=== PATIENT | male | born 1995 | race Caucasian/White ===

== ENCOUNTER 2020-01-23 22:15 | Emergency (ER) | payer SELFPAY ==
[2020-01-23] MEDS ORDERED: DEXAMETHASONE SOD PHOS INJ 10 MG/1 ML VIAL IM ONE (22:53)
--- NOTE | 2020-01-23 22:59 | ER Document Report ---
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 Patient states that he has been out of his mupirocin cream a nd recently started using it. Patient states that he is also had a cough and nasal congestion for 2 weeks and started developing a sore throat 2 days ago. Patient states that eating and drinking does make the pain worse in his throat. He is urinating normally and having normal bowel movements. Denies any headache, fever, neck pain, chest pain, palpitations, syncope, shortness of breath, wheeze, dyspnea, abdominal pain, nausea/vomiting/diarrhea, urinary retention, dysuria, hematuria, or rash. - ROS Systems Reviewed and Negative: Yes All other systems reviewed and negative Past Medical History - Social History Smoking Status: Unknown if Ever Smoked Family History: Reviewed & Not Pertinent Vertical Provider Document - CONSTITUTIONAL Agree With Documented VS: Yes Notes: PHYSICAL EXAMINATION: GENERAL: Well-appearing, well-nourished and in no acute distress. A&Ox4. Answers questions appropriately. Moves comfortably w/o notable distress HEAD: Atraumatic, normocephalic. EYES: Pupils equal round and reactive to light, extraocular movements intact, sclera anicteric, conjunctiva are normal. ENT: Nares patent and with clear discharge. oropharynx mild erythema without exudates. 2+ tonsilar hypertrophy with mild erythema no exudate. There are ulcerations noted to the soft palate. No palatine shift. Uvula midline. No tongue protrusion. No drooling, hoarseness, or airway compromise. Moist mucous membranes. No sinus tenderness. NECK: Normal range of motion, supple without lymphadenopathy. No rigidity/meningismus. LUNGS: Breath sounds clear to auscultation bilaterally and equal. No wheezes rales or rhonchi. No retractions HEART: Regular rate and rhythm without murmurs, rubs, gallops. ABDOMEN: Soft, nontender, nondistended abdomen. No guarding, no rebound. Normal bowel sounds present. No CVA tenderness bilaterally. NEUROLOGICAL: Normal speech, normal gait. PSYCH: Normal mood, normal affect. SKIN: Patient does have some scabbed mildly erythemic lesions around his nose that does appear to be a staph infection. No rash to the palms/soles. Course - Re-evaluation Re-evalutation: 01/23/20 23:41 Patient is an afebrile, well-hydrated, 24-year-old male who presents to the emergency department with an acute URI, suspect viral. I do suspect that he has herpangina of his oropharynx. He also has some mild appearing staph infection around his nose. Vitals are acceptable without significant tachycardia, tachypnea, or hypoxia. PE is otherwise unremarkable. He is nontoxic-appearing and is tolerating p.o. without difficulty. Lungs are clear to auscultation bilaterally. Rapid strep was negative with a throat culture pending. Chest x- ray unremarkable. No further labs or imaging warranted at this time. Patient was given Decadron IM. Low suspicion for any meningitis, sepsis, peritonsillar/pharyngeal abscess, respiratory compromise, Hayden's, or other emergent systemic condition at this time. Patient is aware this condition can change from initial presentation and he needs to monitor symptoms closely. At a precaution with the mild skin infection, I will send him home with a prescription for clindamycin. Conservative measures otherwise for symptoms. Recheck with your PCM in 2-3 days. Return to the ED with any worsening/concerning symptoms otherwise as reviewed in discharge. Patient is in agreement. - Vital Signs Vital signs: Temp Pulse Resp BP Pulse Ox 98.3 F 84 18 132/77 H 97 01/23/20 22:19 01/23/20 22:19 01/23/20 22:19 01/23/20 22:19 01/23/20 22:19 Discharge - Discharge Clinical Impression: Skin lesions, Acute URI, Sore throat Condition: Stable Disposition: HOME, SELF-CARE Instructions: Sore Throat ([facility]), Upper Respiratory Illness ([facility]) Additional Instructions: Maintain adequate fluid intake Keep the skin clean and wash with soap/water Mupirocin cream/triple antibiotic ointment Take meds as directed Salt water gargles, throat sprays, mouthwash rinse, peroxide gargles tylenol/ibuprofen as needed over the counter cold medication as needed for symptoms F/u: with your PCM in 2-3 days for a recheck Consider consult with ENT for ongoing/worsening symptoms Return to the ED with any fever, worsening pain, chest pain, neck pain/stiffness, shortness of breath, cough, drooling, trouble swa llowing/breathing, abdominal pain, n/v/d, rash, or worsening/concerning symptoms otherwise. Prescriptions: Clindamycin HCl 300 mg PO TID #30 capsule Nystatin/Dexameth/Diphen [Magic Mouthwash ([facility] Formula) Susp] 5 ml PO QID #120 ml Forms: Elevated Blood Pressure Referrals: MARIAH MYRICK MD [Primary Care Provider] - Follow up as needed JANES ALLEN DO [ASSOCIATE] - Follow up as needed
--- NOTE | 2020-01-23 23:36 | RADIOLOGY REPORT (SQ) ---
PA and lateral chest radiograph: 01/23/2020 10:34 PM CDT Comparison: None available Indication: 24-year old patient with cough. Findings: The cardiomediastinal silhouette is normal in size.No pneumothorax is seen. No acute airspace opacities are seen. No discrete pleural effusion is apparent. Impression: No acute airspace opacities are seen.
[2020-01-23 23:58] VITALS: BP 131/75
== END 2020-01-23 23:55 | disposition home or self-care (01) ==
LOC: ER 22:15
DX: L98.9 Disorder of the skin and subcutaneous tissue, unspecified (principal); L08.9 Local infection of the skin and subcutaneous tissue, unspecified; B08.5 Enteroviral vesicular pharyngitis; R05 Cough; R09.81 Nasal congestion; J35.1 Hypertrophy of tonsils; Z86.14 Personal history of Methicillin resistant Staphylococcus aureus infection
CPT/HCPCS: 71046; 87070; 87880; 99283